=== PATIENT | male | born 1970 | race African-American/Black ===

== ENCOUNTER 2018-07-14 22:21 | Emergency (ER) | payer OTHER ==
[~2018-07-14 22:21] MED LIST: LIDOCAINE PATCH REMOVAL MC SCH
--- NOTE | 2018-07-14 22:40 | PDOC ---
History of Present Illness - General Stated Complaint: BACK PAIN Time Seen by Provider: 07/14/18 22:32 History Source: Patient Exam Limitations: No Limitations - History of Present Illness Initial Comments: 07/14/18 23:15 47 yo M smoker with no significant PMHx presents with one day history of left rib pain. He states he was at a hotel last night with his fiance. They were having some drinks and playing cards when she said something funny and he threw himself to the ground in laughter. He woke up this morning with excruciating 10/ 10 left rib pain. He states the pain is constant 10/10 located in left rib region but radiates to his back. Pain is worse with palpations, movement, and deep inspiration. He was seen earlier today at [place] and was imaged and worked up. He was told no fracture was seen and given Rx for muscle relaxer and NSAID and sent home. Upon arriving at home he states there was no one home to "take care of him" so he took his muscle relaxer but pain persisted which promoted trip to [facility] ER. Denies CP, [place], SOB, abdominal pain,nausea, vomiting, fever or chills. Timing/Duration: 4-6 hours Modifying Factors: improves with: movement Past History - Travel Traveled outside of the country in the last 30 days: No Close contact w/someone who was outside of country & ill: No - Past Medical History Allergies/Adverse Reactions: Allergies Allergy/AdvReac Type Severity Reaction Status Date / Time No Known Allergies Allergy Verified 07/14/18 22:52 Home Medications: Ambulatory Orders NK [No Known Home Medication] 07/14/18 - Suicide/Smoking/Psychosocial Hx Smoking History: Current every day smoker Years of Tobacco Use: 26 Have you smoked in the past 12 months: Yes Number of Cigarettes Smoked Daily: 10 Review of Systems - Review of Systems Constitutional: No: Chills, Diaphoresis, Fever HEENTM: No: Recent change in vision Respiratory: No: Cough, Orthopnea, Shortness of Breath Cardiac (ROS): Yes: Chest Pain (left rib pain). No: Edema ABD/GI: No: Abdominal Distended, Constipated, Diarrhea, Abdominal cramping Musculoskeletal: Yes: Muscle Pain Neurological: No: Headache, Paresthesia, Weakness, Unsteady Gait *Physical Exam - Physical Exam General Appearance: Yes: Appropriately Dressed, Mild Distress HEENT: positive: IDRIS, Normal Voice Neck: positive: Supple Respiratory/Chest: positive: Chest Tender, Lungs Clear, Normal Breath Sounds. negative: Respiratory Distress, Accessory Muscle Use Cardiovascular: positive: Regular Rate, S1, S2, Tachycardia. negative: Edema, JVD, Murmur Vascular Pulses: Dorsalis-Pedis (R): 2+, Doralis-Pedis (L): 2+ Gastrointestinal/Abdominal: positive: Normal Bowel Sounds, Tender, Flat, Soft Musculoskeletal: negative: CVA Tenderness Neurologic: positive: pretzel cooker II-XII NML intact, Fully Oriented, Alert, Normal Mood/ Affect, Motor Strength 07/08 ED Treatment Course - Medications Given in the ED: 07/14/18 23:55 * Lidoderm patch * Oxycodone x1 Medical Decision Making - Medical Decision Making 07/14/18 23:54 47 yo M smoker with no significant PMHx presents with one day history of left rib pain. Will send for CT chest to r/o fracture. Given lidoderm patch and oxycodone for pain. 07/15/18 01:47 CT chest was negative for acute fracture or patholgy. He responded well to medications. Stable for discharge. Will send lidoderm and oxycodone to pharmacy. *DC/Admit/Observation/Transfer Diagnosis at time of Disposition: Rib injury - Discharge Dispostion Disposition: HOME Condition at time of disposition: Stable Decision to Admit order: No - Referrals Referrals: Serjio Méndez MD [Primary Care Provider] - - Patient Instructions - Post Discharge Activity
[2018-07-14 23:00] VITALS: TEMP 98.4; BMI 20.7
[2018-07-14] MEDS ORDERED: LIDOCAINE 5% TOPICAL PATCH TP ONE (23:45)
--- NOTE | 2018-07-15 00:21 | PDOC ---
"Documentation entered by Tayler Cisneros SCRIBE, acting as scribe for Danielle Drake MD. Danielle Drake MD: This documentation has been prepared by the Blayne stewart Xhesika, SCRIBE, under my direction and personally reviewed by me in its entirety. I confirm that the documentation accurately reflects all work, treatment, procedures, and medical decision making performed by me. Attending Attestation - Resident Resident Name: Augustine Torres - ED Attending Attestation I have performed the following: I have examined & evaluated the patient, The case was reviewed & discussed with the resident, I agree w/resident's findings & plan, Exceptions are as noted - HPI HPI: 07/14/18 23:30 The patient is a 47 year old male with no significant past medical history of who presents to our ED via EMS, with one day of L rib pain. The patient states he was with his fiance at a hotel drinking, she said a funny joke and he fell to the ground in a funny way. The patient states this morning he was getting out of bed when he felt a jolting pain on his side. The patient describes his rib pain as 10/10, radiating to his back. The patient states he was at [facility] today, got a x-ray done, results were normal and he was discharged home with muscle relaxers. The patient went home, took a nap and woke up in more pain which prompted his arrival to the ED. The patient states his pain is aggravated with any type of movement and deep breathing. The patient denies chest pain, shortness of breath or dizziness. The patient denies fever, chills, nausea, diarrhea or constipation. The patient denies dysuria, frequency, urgency or hematuria. Allergy: NKDA Surgical History: None reported Social History: Current smoker. Occasional alcohol use. PCP: Serjio Moore - Physicial Exam PE: 07/14/18 23:10 GENERAL: The patient is in no acute distress. ENT: Ears normal, nares patent, oropharynx clear without exudates. Moist mucous membranes. NECK: Normal range of motion, supple LUNGS: Breath sounds equal, clear to auscultation bilaterally. No wheezes, and no crackles. HEART:Regular rate and rhythm, normal S1 and S2 without murmur, rub or gallop. ABDOMEN: Soft, NO abdominal tenderness or guarding EXTREMITIES: Normal range of motion, no edema. NEUROLOGICAL: Cranial nerves II through XII grossly intact. Normal speech. No focal neurological deficits. SKIN: Warm, Dry, normal turgor, no rashes or lesions noted. 07/15/18 01:46 - Medical Decision Making 07/14/18 23:36 Mr Winters is a 47 yo M who presents with a complaint of chest pain Pt was drinking and fell onto the floor He felt well but awoke this morning and noted left chest wall pain which is severe Pt was seen at outside hospital where xray was negative for rib fractures No abdominal pain No vomiting Pt states pain medications have not helped him Search Terms: Will Winters, 1970 Search Date: 07/14/2018 11:31:34 PM The Drug Utilization Report below displays all of the controlled substance prescriptions, if any, that your patient has filled in the last twelve months. The information displayed on this report is compiled from pharmacy submissions to the Department, and accurately reflects the information as submitted by the pharmacies. This report was requested by: Danielle Drake | Reference #: [id number] 07/14/18 23:46 Pt physical examination is consistent with musculoskeletal pain, rib fracture Will do CT as CXRs were previously negative Pt reporting severe pain (? hemothorax, ?pneumothorax) Will give percocet and lididerm patch for pain Will re assess *DC/Admit/Observation/Transfer Diagnosis at time of Disposition: Rib injury - Discharge Dispostion Disposition: HOME Condition at time of disposition: Stable Decision to Admit order: No - Prescriptions Prescriptions: Lidocaine 5% Patch [Lidoderm Patch -] 1 patch TP DAILY PRN #30 patch PRN Reason: Pain Oxycodone HCl/Acetaminophen [Percocet 5-325 mg Tablet -] 1 tab PO TID PRN #6 tablet MDD 3 PRN Reason: Severe Pain - Referrals Referrals: Serjio Méndez MD [Primary Care Provider] - - Patient Instructions Printed Discharge Instructions: DI for Rib Contusion Additional Instructions: Thank you for coming in to the ER Please use anti inflammatory medication such as Motrin 600mg every 8 hours for pain (with food or milk) You can use Flexeril (previously prescribed) You were also prescribed lidoderm patches (if it is too expensive, ask about the over the counter option) Please use percocet only if needed for severe pain, no driving, no heavy machinery - Post Discharge Activity"
[2018-07-15] MEDS ORDERED: LIDOCAINE 5% TOPICAL PATCH ONE (00:40)
[2018-07-15 02:28] VITALS: BP 111/70; PULSE 79
== END 2018-07-15 03:45 | disposition home or self-care (01) ==
LOC: JER 22:21
DX: R07.81 Pleurodynia (principal); F17.210 Nicotine dependence, cigarettes, uncomplicated
CPT/HCPCS: 71250-TC; 99283-25

== ENCOUNTER 2023-01-21 15:24 | Emergency (ER) | payer OTHER ==
[2023-01-21 15:48] VITALS: BMI 21.5
[2023-01-21] MEDS ORDERED: ACETAMINOPHEN 1000 MG/100 ML BAG IVPB ONE ×3 (16:08→20:00)
[2023-01-21] MEDS ORDERED: LACTATED RINGERS SOLUTION 1000 ML INFUS.BAG IV ONE ×2 (16:08→18:52)
[2023-01-21 16:39] LABS: BASO % 0.3 % (0-2.0); EOS % 0.7 % (0-4.5); HEMATOCRIT 47.8 % (35.4-49); HEMOGLOBIN 16.4 GM/dL (11.7-16.9); MCH 30.3 pg (25.7-33.7); MCHC 34.3 g/dl (32.0-35.9); MEAN CELL VOLUME 88.4 fl (80-96); MEAN PLT VOLUME 9.7 fl (7.5-11.1); MONO % 6.7 % (3.8-10.2); NEUT % 87.3 % (42.8-82.8); PLATELET COUNT 204 10^3/uL (134-434); RBC 5.41 M/mm3 (4.00-5.60); RDW 14.9 % (11.9-15.9); WHITE BLOOD COUNT 7.6 K/mm3 (4.0-10.0)
[2023-01-21 16:49] LABS: INR 1.03 (0.83-1.09); PROTHROMBIN TIME (PATIENT) 11.9 SEC (9.7-13.0)
[2023-01-21 16:52] LABS: ACTIVATED PTT 32.2 SECONDS (25.2-36.5)
[2023-01-21 16:54] LABS: CHLORIDE 111 mmol/L (98-107); POTASSIUM 4.7 mmol/L (3.5-5.1); SODIUM 144 mmol/L (136-145)
[2023-01-21 16:57] LABS: ALBUMIN 4.3 g/dl (3.4-5.0); ANION GAP 5 mmol/L (4-13); CALCIUM 9.8 mg/dL (8.5-10.1); CO2 27 mmol/L (21-32); GLUCOSE,RANDOM 120 mg/dL (74-106); LIPASE 73 U/L (73-393)
[2023-01-21 16:59] LABS: CREATININE 1.1 mg/dL (0.55-1.3); SGOT/AST 32 U/L (15-37); SGPT/ALT 35 U/L (13-61)
[2023-01-21] MEDS ORDERED: ONDANSETRON 4 MG/2 ML VIAL IVPUSH ONE ×2 (17:00→18:52)
[2023-01-21 17:02] LABS: BILIRUBIN,TOTAL 0.4 mg/dL (0.2-1); TOT PROT 9.3 g/dl (6.4-8.2)
[2023-01-21 17:03] LABS: ALK PHOS 114 U/L (45-117)
[2023-01-21] MEDS ORDERED: ONDANSETRON 4 MG/2 ML VIAL ONE ×2 (17:03→19:21)
[2023-01-21 19:36] LABS: EPI CELLS 3 /uL (0-25.1); HYALINE CASTS 0 /uL (0-3.1); PH,URINE 5.5 (5.0-8.0); URINE APPEARANCE CLEAR; URINE BACTERIA 7 /uL (0-1359); URINE BILIRUBIN NEGATIVE (NEGATIVE); URINE COLOR YELLOW; URINE GLUCOSE (UA) NEGATIVE (NEGATIVE); URINE KETONE NEGATIVE (NEGATIVE); URINE LEUK ESTERASE NEGATIVE (NEGATIVE); URINE NITRITE NEGATIVE (NEGATIVE); URINE PROTEIN 1+ (NEGATIVE); URINE RBC 37 /uL (0-23.9); URINE UROBILINOGEN 0.2 mg/dL (0.2-1.0); URINE WBC 9 /uL (0-25.8)
[2023-01-21] MEDS ORDERED: METOCLOPRAMIDE HCL INJECTION 10 MG/2 ML VIAL IVPUSH ONE (19:37)
[2023-01-21] MEDS ORDERED: METOCLOPRAMIDE HCL INJECTION 10 MG/2 ML VIAL ONE (19:47)
[2023-01-21] MEDS ORDERED: ACETAMINOPHEN INJECTION 100 ML IVPB ONE (19:52)
[2023-01-21 21:26] VITALS: BP 121/67; PULSE 103; RESP 20; TEMP 99.2
[2023-01-21] MEDS ORDERED: LOPERAMIDE HCL 1 MG/5 ML UNIT DOSE CUP PO ONE (23:49)
[2023-01-21] MEDS ORDERED: LOPERAMIDE HCL 2 MG CAPSULE ONE (23:56)
== END 2023-01-22 01:26 | disposition home or self-care (01) ==
LOC: JER 15:24
PROC: 3E033NZ Introduction of Analgesics, Hypnotics, Sedatives into Peripheral Vein, Percutaneous Approach (ICD-10-PCS; principal; 2023-01-21)
PROC: 3E033GC Introduction of Other Therapeutic Substance into Peripheral Vein, Percutaneous Approach (ICD-10-PCS; 2023-01-21)
PROC: 3E033GC Introduction of Other Therapeutic Substance into Peripheral Vein, Percutaneous Approach (ICD-10-PCS; 2023-01-21)
PROC: 3E033NZ Introduction of Analgesics, Hypnotics, Sedatives into Peripheral Vein, Percutaneous Approach (ICD-10-PCS; 2023-01-21)
PROC: 3E033GC Introduction of Other Therapeutic Substance into Peripheral Vein, Percutaneous Approach (ICD-10-PCS; 2023-01-21)
DX: R11.2 Nausea with vomiting, unspecified (principal); R19.7 Diarrhea, unspecified; R10.9 Unspecified abdominal pain; Z20.822 Contact with and (suspected) exposure to COVID-19
CPT/HCPCS: 0241U-QW; 36415; 71045-TC-FY; 80053; 80307; 81003; 82962; 83690; 83735; 84484; 85025; 85610; 85730; 87086; 93005; 93010; 99285-25

== ENCOUNTER 2023-07-24 09:18 | Emergency (ER) | payer OTHER ==
[2023-07-24 09:51] VITALS: BMI 21.5
[2023-07-24] MEDS ORDERED: ASPIRIN 81 MG CHEWABLE TABLETS ONE (10:11)
[2023-07-24] MEDS ORDERED: FAMOTIDINE 20 MG/50 ML IVPB 20 MG/50 ML MG IVPB ONE (10:12)
[2023-07-24] MEDS ORDERED: MAG HYDROX/AL HYDROX/SIMETH 30 ML UNIT-DOSE CUP ONE (10:12)
[2023-07-24] MEDS ORDERED: ACETAMINOPHEN INJECTION 100 ML IVPB ONE ×2 (10:12→12:24)
[2023-07-24] MEDS: FAMOTIDINE 20 MG/50 ML IVPB 20 MG/50 ML MG IVPB ONE (10:37)
[2023-07-24] MEDS: ASPIRIN 81 MG CHEWABLE TABLETS PO ONE (10:37)
[2023-07-24] MEDS: MAG HYDROX/AL HYDROX/SIMETH 30 ML UNIT-DOSE CUP PO ONE (10:37)
[2023-07-24 10:40] LABS: BASO % 0.8 % (0-2.0); EOS % 2.7 % (0-4.5); HEMATOCRIT 40.3 % (35.4-49); HEMOGLOBIN 13.5 GM/dL (11.7-16.9); LYMPH % 34.8 % (8-40); MCH 30.6 pg (25.7-33.7); MCHC 33.6 g/dl (32.0-35.9); MEAN CELL VOLUME 91.1 fl (80-96); MEAN PLT VOLUME 9.8 fl (7.5-11.1); MONO % 19.9 % (3.8-10.2); NEUT % 41.8 % (42.8-82.8); PLATELET COUNT 172 10^3/uL (134-434); RBC 4.42 M/mm3 (4.00-5.60); RDW 13.7 % (11.9-15.9); WHITE BLOOD COUNT 6.1 K/mm3 (4.0-10.0)
[2023-07-24 10:46] LABS: INR 1.02 (0.83-1.09); PROTHROMBIN TIME (PATIENT) 11.5 SEC (9.7-13.0)
[2023-07-24 10:48] LABS: ACTIVATED PTT 36.5 SECONDS (25.2-36.5)
[2023-07-24 11:07] LABS: POTASSIUM 3.8 mmol/L (3.5-5.1)
[2023-07-24 11:08] LABS: CALCIUM 8.5 mg/dL (8.5-10.1)
[2023-07-24 11:09] LABS: ALBUMIN 3.3 g/dl (3.4-5.0); BLOOD UREA NITROGEN 10.7 mg/dL (7-18); MAGNESIUM 2.2 mg/dL (1.8-2.4)
[2023-07-24 11:14] LABS: BILIRUBIN,TOTAL 0.3 mg/dL (0.2-1); TOT PROT 7.2 g/dl (6.4-8.2)
[2023-07-24] MEDS: ACETAMINOPHEN 1000 MG/100 ML BAG IVPB ONE (12:42)
[2023-07-24 15:18] VITALS: BP 115/88; PULSE 73; RESP 16; TEMP 97.6
== END 2023-07-24 15:00 | disposition home or self-care (01) ==
LOC: JER 09:18
PROC: 3E033GC Introduction of Other Therapeutic Substance into Peripheral Vein, Percutaneous Approach (ICD-10-PCS; principal; 2023-07-24)
PROC: 3E033NZ Introduction of Analgesics, Hypnotics, Sedatives into Peripheral Vein, Percutaneous Approach (ICD-10-PCS; 2023-07-24)
DX: R07.81 Pleurodynia (principal); R06.00 Dyspnea, unspecified
CPT/HCPCS: 36415; 71045-TC-FY; 80053; 83735; 84484; 85025; 85379; 85610; 85730; 86850; 86900; 86901; 93005; 93010; 99285-25; J0131